=== PATIENT | female | born 1980 | race Caucasian/White ===

== ENCOUNTER 2022-06-08 07:05 | Outpatient (CLI) | payer BC, SELFPAY ==
--- NOTE | 2022-06-08 07:15 | CRLHL7_ITS ---
For Patients: As a result of the Century Cures Act, medical imaging exams and procedure reports are released immediately into your electronic medical record. You may view this report before your referring provider. If you have questions, please contact your health care provider. INDICATION: Dating and viability COMPARISON: none TECHNIQUE: Real time cole scale imaging of the fetus was performed. FINDINGS: Sonographic imaging demonstrates a single living intrauterine gestation. Fetus demonstrates a regular cardiac rate of 157 beats per minute. Fetus has a vertex position. The placenta lies anteriorly. Amniotic fluid volume appears normal. Single deepest vertical pocket: 4.1 cm. The cervix is closed and measures 5.9 cm in length. The composite ultrasound gestational age is calculated at 18 weeks 6 days with an estimated sonographic due date of 11/03/2022. The estimated weight is 290 grams which lies at the 77th %. The following biometric measurements were obtained: Biparietal diameter: 3.9 cm/17 weeks 6 days 13th% Head circumference: 15.6 cm/18 weeks 4 days 27th% Abdominal circumference: 14.5 cm/19 weeks 6 days 78th% Femur length: 3.0 cm/19 weeks 1 day 57th% The HC/AC ratio measures: 1.07 range (1.09-1.26) Too early for anatomic survey. There is an anterior uterine fibroid measuring 2.1 x 1.2 x 1.8 cm. IMPRESSION: Single living intrauterine with sonographic gestational age 18 weeks 6 days and sonographic due date 11/03/2022. Mid anterior uterine fibroid measuring 2.1 cm. Dictated by Oswaldo Coleman MD @ 06/08/2022 8:39:00 AM (Electronically Signed)
== END 2022-06-08 07:06 | disposition home or self-care (01) ==
PROVIDERS: Visit Provider Advanced Practice Midwife
DX: O09.522 Supervision of elderly multigravida, second trimester (principal); Z3A.18 18 weeks gestation of pregnancy
CPT/HCPCS: 76815; 86592; 86703; 86762; 86787; 86803; 86850; 86900; 86901; 87086; 87340; 87491; 87591

== ENCOUNTER 2022-06-20 14:49 | Outpatient (CLI) | payer BC, SELFPAY | END 2022-06-20 14:50 | disposition home or self-care (01) | LOC: US 14:50 | PROVIDERS: Visit Provider Pediatrics Neonatal-Perinatal Medicine | DX: O09.522 Supervision of elderly multigravida, second trimester (principal); Z3A.20 20 weeks gestation of pregnancy | CPT/HCPCS: 76811 ==

== ENCOUNTER 2022-08-09 14:43 | Outpatient (CLI) | payer BC, SELFPAY ==
[2022-08-12 03:14] LABS: Rapid Plasma Reagin (RPR) Non Reactive (Non Reactive)
== END 2022-08-09 14:44 | disposition home or self-care (01) ==
PROVIDERS: Visit Provider Obstetrics & Gynecology
DX: Z34.82 Encounter for supervision of other normal pregnancy, second trimester (principal)
CPT/HCPCS: 86592

== ENCOUNTER 2022-08-13 13:30 | Outpatient (CLI) | payer BC, SELFPAY ==
[2022-08-13 08:52] LABS: Glucose Fasting Check 94 mg/dl (60-115)
[2022-08-13 13:26] LABS: Glucose GTT-Gestational 3 Hr 112 mg/dl (70-140)
[2022-08-13 13:26] LABS: Glucose 1 Hour Gest 158 mg/dl (70-180)
== END 2022-08-13 13:31 | disposition home or self-care (01) ==
PROVIDERS: Visit Provider Obstetrics & Gynecology
DX: Z34.90 Encounter for supervision of normal pregnancy, unspecified, unspecified trimester (principal)
CPT/HCPCS: 82951; 82952

== ENCOUNTER 2022-09-06 13:51 | Outpatient (CLI) | payer BC, SELFPAY ==
--- NOTE | 2022-09-06 14:00 | CRLHL7_ITS ---
For Patients: As a result of the Century Cures Act, medical imaging exams and procedure reports are released immediately into your electronic medical record. You may view this report before your referring provider. If you have questions, please contact your health care provider. INDICATION: GROWTH AND FLUID COMPARISON: 06/20/2022 TECHNIQUE: Real time cole scale imaging of the fetus was performed. FINDINGS: Sonographic imaging demonstrates a single living intrauterine gestation. Fetus demonstrates a regular cardiac rate of 134 beats per minute. Fetus has a niki breech position. The placenta lies anteriorly. Amniotic fluid volume appears normal and there is a single deepest vertical pocket: 7.6 cm. The estimated weight is 2201gm which lies at the 90th %. On the prior OB ultrasound exam dated 06/20/2022 the estimated weight was at the 96th%. BPD 76th percentile. HC 54th present. AC 90th percentile. FL 87th percentile. The HC/AC ratio measures 1.02 range (0.96-1.11). IMPRESSION: Sonographic gestational age 33 weeks 2 days and sonographic due date 10/23/2022. Sonographic age is 11 days ahead of the clinical age. Estimated weight 90th percentile. Abdominal circumference 90th percentile. Dictated by Oswaldo Coleman MD @ 09/06/2022 2:53:14 PM (Electronically Signed)
== END 2022-09-06 13:52 | disposition home or self-care (01) ==
PROVIDERS: Visit Provider Obstetrics & Gynecology
DX: O09.523 Supervision of elderly multigravida, third trimester (principal); Z3A.33 33 weeks gestation of pregnancy
CPT/HCPCS: 76816

== ENCOUNTER 2022-10-01 12:51 | Outpatient (CLI) | payer BC, SELFPAY ==
--- NOTE | 2022-10-01 13:00 | CRLHL7_ITS ---
For Patients: As a result of the Century Cures Act, medical imaging exams and procedure reports are released immediately into your electronic medical record. You may view this report before your referring provider. If you have questions, please contact your health care provider. INDICATION: Third trimester scan, evaluate growth. Check fluid. COMPARISON: 09/06/2022 TECHNIQUE: Real time cole scale imaging of the fetus was performed. FINDINGS: Sonographic imaging demonstrates a single living intrauterine gestation. Fetus demonstrates a regular cardiac rate of 135 beats per minute. Fetus has a vertex position. The placenta lies anteriorly. Amniotic fluid volume appears normal and there is a single deepest vertical pocket: 6.7 cm. The estimated weight is 3081gm which lies at the 90th %. On the prior OB ultrasound exam dated 09/06/2022 the estimated weight was at the 90th%. BPD 52nd percentile. HC 27th percentile. AC greater than 97th percentile. FL 59th percentile. The HC/AC ratio measures 0.93 range (0.92-1.07). IMPRESSION: Sonographic gestational age 36 weeks 2 days and sonographic due date of 10/27/2022. Sonographic age is 1 week ahead of the clinical age. Estimated weight 90th percentile. Abdominal circumference greater than 97th percentile. Dictated by Oswaldo Coleman MD @ 10/01/2022 1:32:33 PM (Electronically Signed)
== END 2022-10-01 12:52 | disposition home or self-care (01) ==
LOC: US 12:52
PROVIDERS: Visit Provider Obstetrics & Gynecology
DX: O09.523 Supervision of elderly multigravida, third trimester (principal); Z3A.36 36 weeks gestation of pregnancy
CPT/HCPCS: 76816

== ENCOUNTER 2022-10-11 14:16 | Outpatient (CLI) | payer BC, SELFPAY ==
[2022-10-12 12:52] LABS: Strep B DNA Probe NEGATIVE (Negative)
[2022-10-12 13:25] LABS: Strep B Pen/Amox Allergy No
== END 2022-10-11 14:17 | disposition home or self-care (01) ==
LOC: NFLDREF 14:16
PROVIDERS: Visit Provider Obstetrics & Gynecology
DX: O09.513 Supervision of elderly primigravida, third trimester (principal); Z3A.36 36 weeks gestation of pregnancy
CPT/HCPCS: 87081; 87653

== ENCOUNTER 2022-10-20 04:57 | Inpatient (IN) | payer BC, SELFPAY ==
[2022-10-20] VITALS (32 sets, daily range): BP systolic 108–129; BP diastolic 50–87; PULSE 89–126; RESP 16; TEMP 36.1–36.7; O2SAT 94–100
[2022-10-20 06:19] LABS: Hemoglobin* 11.2 gm/dL (12.0-16.0)
[2022-10-20 06:24] LABS: SARS PCR* Negative SARS-CoV-2 (Negative)
[2022-10-20 06:53] LABS: Basophils Percent Auto 0.4 % (0.0-3.0); Eosinophils Percent Auto 1.2 % (0.0-7.0); Hematocrit 34.7 % (33.0-51.0); Hemoglobin* 11.2 gm/dL (12.0-16.0); Immature Granulocytes Pct Auto 0.6 %; Lymphocytes Percent Auto 18.4 % (20-44); Mean Corpuscular HGB Conc 32 gm/dL (32-36); Mean Corpuscular Hemoglobin 26 pg (26-34); Mean Corpuscular Volume 82 fL (80-100); Monocytes Percent Auto 8.1 % (0.0-11.0); Neutrophils Percent Auto 71.3 % (42.0-72.0); Platelet Count* 304 K/uL (140-440); RDW Coefficient of Variation % 14.1 % (11.5-15.5); Red Blood Count 4.24 m/uL (4.00-5.20); White Blood Count* 14.15 K/uL (4.50-11.00)
[2022-10-20 06:59] LABS: Slide Review Reflex No
--- NOTE | 2022-10-20 07:30 | P.PCN_ITS ---
Procedure Note Time Seen by Provider: 07:30 Date Seen: 10/20/22 Date of procedure: 10/20/22 Will [facility] bill your pro fee for this procedure?: Yes Procedure: Preoperative diagnosis: 42-year-old 4 para 3003 at 38 and 0/7 weeks ad mitted for a 1. Scheduled repeat low transverse section. 2. Undesired fertility 3. Gestational hypertension Postoperative diagnosis: Same Procedure: Repeat low-transverse section. Bilateral Salpingectomy Anesthesia: Spinal, TAPS block (placed at the end of the procedure) Surgeon: Kristen Romero MD Project Landscape Architect: Not applicable Quantitative blood loss: 417 mL IVF: 1500 mL UOP: 400 mL clear urine the end of the procedure Drain(s): Watson to gravity Specimen: Placenta, Right and left fallopian tubes to pathology Findings: A live female was delivered from the direct OA position at 8:12 am. Apgars were 8 at 1 min and 8 at 5 min, respectively. Infant weight: 3680 g, 8 lb 2 oz: AGA. Nuchal cord(s): No. The placenta was delivered spontaneously and complete at 8:15 am. Amniotic fluid: Large amount of clear fluid. Normal uterus, fallopian tubes and ovaries were noted. Other findings: Adhesions of the bladder to the left lower anterior uterine segment that were taken down sharply. Procedure: Haylie was taken to the OR where spine anesthetic was found be adequate. A Watson catheter was placed. The patient was then placed in the dorsal supine position with a leftward tilt. She was then prepped and draped in a normal sterile manner. A Pfannenstiel skin incision was made and carried through sharply to the underlying layer of fascia. Fascia was incised in the midline and this incision carried laterally with Arzate scissors. The superior aspect of fascial incision was grasped with Milana clamps, tented up, and the rectus musc les dissected off with combination of bipolar cautery and sharp dissection to 3- 5cm superior to the fascial incision. The inferior aspect of the fascial incision was not dissected off the rectus muscles. The rectus muscles were in the midline. The peritoneum was grasped with 2 Claudia clamps and entered sharply with Arzate scissors.. This opening was extended in layers inferiorly with excellent visualization of the bladder. An Juanito-O self- retaining retractor was placed. There were adhesions of the bladder reflection to the left lower intrauterine segment that were taken down sharply with Metzenbaum scissors. A bladder flap was not created. Uterus was incised in a low transverse manner in the midline. This incision carried laterally with blunt pressure on the inferior and superior aspects of the uterine incision. The amniotic sac was ruptured. The infant's head and body was delivered atraumatically. The was shown to the patient and her support person, then handed to waiting nursing staff. The placenta was delivered spontaneously. The uterus was cleared of clots and debris. The uterine incision was re-approximated with the uterus in vivo. The 1st layer using 0-Vicryl in a running, locked manner. The 2nd layer using 0-Monocryl in a running, vertical, imbricating layer. Additional sutures needed for hemostasis: No. Attention was then turned to performing the bilateral salpingectomy. The uterus was exteriorized to visualize fallopian tubes and ovaries.The right fallopian tube was identified, grasped with 2 Veronica clamps and followed to the fimbriate d end of the fallopian tube. The hand-held LigaSure dissecting forceps was used to remove the fallopian tube from the cornua and broad ligament by sequential pedicles. The pedicles were started at the fimbriated end of the tube and extended toward the cornua. The fallopian tube was amputated from the cornual a and sent to pathology. Hemostasis of the pedicles was obtained using bipolar cautery and a DeBakey forceps. The left fallopian tube was then identified, grasped with 2 Veronica clamps and removed in the same manner as the right fallopian tube. All pedicles were visualized and hemostasis obtained using bipolar cautery with a DeBakey clamp. The uterine incision was reinspected and noted to be hemostatic. Hitesh was applied to the uterine incision and excellent hemostasis was confirmed. The Juanito retractor was removed. The rectus muscles were not reapproximated. The peritoneum was repaired using 3-0 Vicryl in a running manner. The rectus muscles were then closely inspected to verify hemostasis. Hemostasis was obtained with bipolar cautery. The fascia was then reapproximated using 0-Maxon loop in a running manner. The subcutaneous tissue was then irrigated with saline and hemostasis obtained with bipolar cautery. The subcutaneous tissue was reapproximated using 3-0 plain gut interrupted sutures in 2 layers. The skin was reapproximated using 4-0 Monocryl in a running subcuticular manner. Exofin skin adhesive and a Methaplex dressing were applied. The patient tolerated this procedure well. Sponge, lap and instrument counts were correct x2 active to the procedure. Patient was taken to the recovery area in stable condition. The patient received 2g of IV Ancef prior to skin incision. Anesthesia: spinal Surgeon: Kristen Romero MD Pathology: specimen obtained, sent to pathology Condition: stable Disposition: floor
[2022-10-20] MEDS: LACTATED RINGERS 1000 ML 1,000 ML 100 ML IV ×2 (07:34→08:13)
[2022-10-20] MEDS: CEFAZOLIN 2 GM INJ IVP (07:44)
[2022-10-20] MEDS: KETOROLAC 30 MG/ML inj IVP ×3 (08:48→21:04)
--- NOTE | 2022-10-20 09:38 | P.NB_ITS ---
Nerve Block Nerve Block Time Seen by Provider: 09:20 Date Seen: 10/20/22 Type of block requested by surgeon for post-operative analgesia: TAP Side: bilateral Time out performed: Yes Verification of patient name: Yes Verification of date of : Yes Site marking: site marked Name of person performing procedure: emir Continuous monitoring Was continuous monitoring of O2 sat, B/P, cardiac specialist, recorded every 15 minutes?: Yes Procedure Checklist: sterile prep, needles and gloves Ultrasound guided. Images saved: Yes Medications given in 5ml increments after negative aspiration: Marcaine %: 0.25 mL: 30 Needle gauge: 20 and Exparel mL: 10 Patient tolerated procedure well: Yes Block Charges Block Charge (with Pro Fee): TAP Bilateral Use of Ultrasound Machine for Block: Yes- US Guidance/pain block
--- NOTE | 2022-10-20 09:40 | W.ANESCHARGE ---
Anesthesia Charges Start Date/Time Anesthesia Start Date: 10/20/22 Stop Date/Time Anesthesia Stop Date: 10/20/22 Anesthesia Stop Time: 09:31
[2022-10-20] MEDS: METOCLOPRAMIDE HCL 5 MG/ML INJ IVP (09:52)
[2022-10-21] VITALS (11 sets, daily range): BP systolic 116–134; BP diastolic 75–84; PULSE 86–95; RESP 16; TEMP 36.6–36.8; O2SAT 95–97
[2022-10-21] MEDS: KETOROLAC 30 MG/ML inj IVP ×3 (03:22→15:58)
[2022-10-21 04:34] LABS: Hemoglobin* 10.4 gm/dL (12.0-16.0)
--- NOTE | 2022-10-21 05:36 | P.OBPN_ITS ---
OB - PN: Subj Subjective Time Seen by Provider: 06:28 Date Seen: 10/21/22 Narrative: SUBJECTIVE The patient feels well. The pain is well controlled with current medications. She has no new complaints. Watson is in place/has been removed. There is adequate urine output. The patient is voiding without difficulty. She has good appetite, is tolerating a grade, is passing flatus, and has in a had a bowel movement. There is scanned amount of rubra lochia. She is ambulating well. Bottle for without difficulty. Postop hgb is pending. OBJECTIVE: Vital Signs: See EMR MOOD: appropriate CHEST: clear to auscultation HEART: regular rate and rhythm ABDOMEN: soft, non-tender the uterine fundus is firm at the Umbilicus, Midline and is appropriate for the stage of recovery. INCISION: clean, dry and intact with sutures and skin adhesive gel. EXTREMITIES: normal and no edema ASSESSMENT [age] year old who is: 1. Postoperative day # 1 from a scheduled repeat low-transverse with bilateral salpingectomy 2. Postoperative hemoglobin is pending 3. Bottle feeding PLAN 1. Continue routine postoperative cares. 2. Encouraged ambulation and oral hydration. 3. Planning on discharge home tomorrow OB - PN: Obj Exam Physical Exam: Vital signs: Temp Pulse Resp BP Pulse Ox O2 Del Method 98.0 F 95 16 125/80 97 10/21/22 03:17 10/21/22 03:17 10/21/22 04:52 10/21/22 03:17 10/21/22 00:13 10/21/22 00:13 OB - PN: Obj Data Labs Labs: Laboratory Results - last 24 hr 10/20/22 10/20/22 10/20/22 06:02 06:12 06:12 WBC 14.15 H RBC 4.24 Hgb 11.2 L 11.2 L Hct 34.7 MCV 82 MCH 26 MCHC 32 RDW Coeff of Sugey 14.1 Plt Count 304 Neut % (Auto) 71.3 Lymph % (Auto) 18.4 L [place] % (Auto) 8.1 Eos % (Auto) 1.2 Baso % (Auto) 0.4 Neut # (Auto) 10.10 H Lymph # (Auto) 2.60 Independence # (Auto) 1.10 H Eos # (Auto) 0.20 Baso # (Auto) 0.10 SARS-CoV-2 (PCR) Blood Type A Positive Antibody Screen NEGATIVE 10/20/22 10/21/22 Unknown 04:26 WBC RBC Hgb 10.4 L Hct MCV MCH MCHC RDW Coeff of Sugey Plt Count Neut % (Auto) Lymph % (Auto) Independence % (Auto) Eos % (Auto) Baso % (Auto) Neut # (Auto) Lymph # (Auto) Independence # (Auto) Eos # (Auto) Baso # (Auto) SARS-CoV-2 (PCR) Negative SARS-CoV-2 Blood Type Antibody Screen
[2022-10-21] MEDS: DOCUSATE SODIUM 100 MG CAPSULE PO (09:13)
[2022-10-21] MEDS: ACETAMINOPHEN 500 MG TABLET 1000 MG PO (19:42)
[2022-10-22 04:43] VITALS: BP 136/84; PULSE 89; RESP 16; TEMP 36.6; O2SAT 96
[2022-10-22 08:00] VITALS: BP 135/91; PULSE 87; RESP 16; TEMP 36.9; O2SAT 97
--- NOTE | 2022-10-22 08:08 | P.DS_ITS ---
DS: Providers Provider Date Seen: 10/22/22 Date of admission: 10/20/22 04:57 Primary care physician: Kristen Romero MD Admitting Clinician: Kristen Romero MD Attending Physician on discharge: Kristen Romero MD Date of Discharge: 10/22/22 DS: Diagnosis Discharge Diagnosis (1) care following delivery: Status: Acute (2) History of bilateral salpingectomy: Status: Acute Exam Narrative: Exam Narrative: GENERAL APPEARANCE:? normal affect, alert, no distress? MOOD:? appropriate? CHEST:? clear to auscultation and percussion? HEART:? regular rate and rhythm? ABDOMEN:? soft, non-tender the uterine fundus is 1 cm Below Umbilicus, Midline and is appropriate for the stage of recovery. Incision well approximated without edema, redness, warmth, or drainage. Glue closure intact.? PERINEUM:? intact EXTREMITIES:? normal and no edema? Patient has no complaints? No active bleeding?? Doing well? She is requesting discharge home.? Const: Vital Signs, click to edit/add: Vital Signs - 24 hr 10/21/22 08:30 10/21/22 16:01 10/21/22 19:37 Temperature 98.2 F 97.9 F 97.9 F Pulse Rate [Pulse Oximeter] 90 90 86 Respiratory Rate 16 16 16 Blood Pressure [Le ft Arm] 122/75 134/84 130/80 Pulse Oximetry 97 96 96 Oxygen Delivery Me thod Room Air Room Air Room Air 10/22/22 04:43 Temperature 97.8 F Pulse Rate [Pulse Oximeter] 89 Respiratory Rate 16 Blood Pressure [Le ft Arm] 136/84 Pulse Oximetry 96 Oxygen Delivery Me thod Documenting provider has reviewed patient's vital signs: yes OB - DS: Summary Hospital Course Hospital Course: Patient is a 42year old, G 4 now P 4? admitted on 10/20/22 at 38 Weeks, 0 Days gestation for repeart .? She had an uncomplicated delivery.? She delivered a viable female infant.? She is bottle feeding and reports things are well. Discussed comfort measures for engorgement.? the patient has done well.? Her pain is well controlled with current medications.? She has no new complaints.? Vitals have been stable. She has remained afebrile. She is voiding without difficulty. She is passing gas and has not had a bowel movement. She is ambulating and denies any dizziness. She has a bilateral salpingectomy for control.? Peripartum Data Procedures: Procedures Operation Date: 10/20/22 07:15 Actual Procedure Side Surgeon p Section Kristen Romero MD s Bilateral Salpingectomy Kristen Romero MD Operation Date: 10/26/22 07:15 <No data on this case meets the specified criteria> complications: none Infant Gender: Female Discharge Plan: Home Status at Discharge Functional status at discharge: independent ambulation Overall status at discharge: patient is progressing back to baseline Time Spent with Patient Time attestation: Total time spent providing and/or coordinating discharge services: Discharge Plan Discharge Disposition: Home, Self-Care Date of Admission: 10/20/22 04:57 Attending Provider on Discharge: Calista Victor Primary Care Provider: Kristen Romero Condition: Stable Anticipated Discharge Date/Time: 10/22/22 12:00 Discharge Medications: New docusate sodium 100 mg Capsule 100 mg PO BID PRN (Reason: constipation) Qty: 100 0RF ibuprofen 600 mg Tablet 600 mg PO Q6H PRN (Reason: Pain) Qty: 30 0RF oxycodone 5 mg Tablet 5 mg PO Q4H PRN (Reason: Pain) Qty: 21 0RF Continued famotidine [Acid Paper Ruler (famotidine)] 20 mg tablet 20 mg PO QDAY PRN (Reason: acid reflux) Discontinued Gummies 400 mcg-35 mg- 25 mg-5 mg tablet,chewable 1 tab PO Discharge Orders: Discharge Order (Routine); Ordered 10/22/22 Ordered By: Calista Victor Patient Education: (DC), Salpingectomy (DC) Additional Instructions: ACTIVITY RESTRICTIONS: After a section: 1. No driving while taking narcotic pain medication during the day. 1-2 weeks. Okay to be the passenger anytime. 2. Lifting restriction: Maximum of 20 pounds for 6 weeks. 3. No high impact or core exercises for 6 weeks. 4. Nothing vaginally for 6 weeks: no tampons/intercourse 5. OK to soak the incision (bath/pool) 2 weeks after delivery 6. Off of work for a minimum of 8 weeks postoperatively. No restriction for the followin. Walking and going up or down stairs. 2. Showering Symptoms to report to doctor: -Bleeding that saturates more than one pad per hour ?-Passing clots larger than the size of a golf ball ?-Pain not relieved by prescribed medication ?-Fever above 100.4 degrees Fahrenheit ?-A foul vaginal odor ?-Difficulty in emotions, mood and functions ?-Thoughts of hurting yourself and/or ?-Painful, reddened area in your breast ?-Any drainage, redness or tenderness in your IV/epidural site ?-Severe headache that doesn't improve after taking medications ?-Changes in vision, including temporary loss of vision, blurred vision, and/or light sensitivity ?-Upper abdominal pain (usually under ribs on the right side) ?-Decrease in urination or painful, frequent urinating ?-Chest pain ?-Shortness of breath ?-Tenderness or pain with redness and/swelling in the calf(s) of your leg FOLLOW-UP APPOINTMENTS: 1. 2 week visit with Kristen Romero MD: discuss infant care/feeding concerns, screen for anxiety/depression and incision check. 2. A 6 week visit for an annual physical exam. consultation services are available to all mothers and babies for the first year after delivery.? To make an appointment, please call [phone]. Activity Level: Other Discharge Diet: Regular Follow Up Appointments: [facility] [Provider Group] Kristen Romero MD [Primary Care Provider] - Forms: [employer] Info Instructions
[2022-10-22 11:35] VITALS: BP 135/91; PULSE 87; RESP 18; TEMP 36.9
== END 2022-10-22 11:50 | disposition home or self-care (01) | DRG 540 ==
PROVIDERS: Admitting Provider Obstetrics & Gynecology; PCP Obstetrics & Gynecology; Visit Provider Obstetrics & Gynecology
PROC: 10D00Z1 Extraction of Products of Conception, Low, Open Approach (ICD-10-PCS; CPT 59514; principal; 2022-10-20 07:00)
PROC: 10D00Z1 Extraction of Products of Conception, Low, Open Approach (ICD-10-PCS; CPT 58661; 2022-10-20 07:00)
DX: O34.211 Maternal care for low transverse scar from previous cesarean delivery (principal); O13.4 Gestational [pregnancy-induced] hypertension without significant proteinuria, complicating childbirth; O99.334 Smoking (tobacco) complicating childbirth; F17.210 Nicotine dependence, cigarettes, uncomplicated; Z3A.38 38 weeks gestation of pregnancy; Z30.2 Encounter for sterilization; Z37.0 Single live birth
CPT/HCPCS: 1961; 36415; 76942; 82565; 82570; 84156; 84450; 84460; 84520; 84550; 85018; 85025; 86850; 86900; 86901; 87635; 88302; 88307; A9270; C9290; J0690; J1100; J1885; J2274; J2370; J2405; J2590; J2765; J3010; J3490; J7120

== ENCOUNTER 2023-01-08 04:12 | Emergency (ER) | payer BC, SELFPAY ==
[2023-01-08 04:18] VITALS: BP 155/84; PULSE 84; RESP 18; TEMP 36.7; O2SAT 99; BMI 30.9
--- NOTE | 2023-01-08 04:42 | ED.GENADULT ---
HPI - General Adult General Chief complaint: Vaginal Bleeding Stated complaint: bleeding heavily Time Seen by Provider: 01/08/23 04:18 Source: patient Mode of arrival: ambulatory Limitations: no limitations History of Present Illness HPI narrative: 42-year-old female slightly less than 3 months from repeat of her last baby. Reports that she got her 1st menstrual. Following delivery 3 days ago, initially light. Has become increasingly heavy. Started passing small clots up to the size of a nickel but mostly stringy and pea-sized clots. She reports that she is changing her pad every hour but admittedly is not fully soaking through. She felt a little lightheaded after she went to the bathroom did not lose consciousness. Now feels a little weak but otherwise well. No fevers. notes reviewed, uncomplicated. No history of fibroids, polyps or other uterine abnormalities per patient. No fever, no unusual discharge. She is a smoker. She is not on any type of contraception, hormone replacement therapy etc.. Has not tried any other interventions to help with her symptoms prior to coming to the ED. Reports that she was assessed by a triage line and they advised her to come to the ED. she has been taking ibuprofen for cramping and had a tubal ligation with the . Does not use anticoagulants. Past medical history notable for 2 C sections. Not on any type of hormone therapy. Smoker. No allergies. ROS is notable for the heavy bleeding and generalized symptoms as above, otherwise denies times 12 systems. Related Data Home Medications Medication Instructions Recorded Confirmed No Known Home Medications 01/08/23 01/08/23 Allergies Allergy/AdvReac Type Severity Reaction Status Date / Time No Known Allergies Allergy Verified 01/08/23 04:22 [facility] Medical History Gestational hypertension (~10/19/22) ?O13.9 - Gestational [-induced] hypertension without significant proteinuria, unspecified trimester (ICD-10) Surgical History History of bilateral salpingectomy (10/20/22) ?Z90.79 - Acquired absence of other genital organ(s) (ICD-10) Status post repeat low transverse section (10/20/22) ?Z98.891 - History of uterine scar from previous surgery (ICD-10) [place] teeth extracted ?K08.409 - Partial loss of teeth, unspecified cause, unspecified class (ICD-10) History of delivery ?Z98.891 - History of uterine scar from previous surgery (ICD-10) Family History Mother Diabetes Social History Narrative: Cis-gender, heterosexual woman. Relationship status: . Spouse/Partner: Crow Education: High school graduate Occupation: Works for [employer] Tobacco: Her Smoker: Approximately 1/2 pack per day E-cigarettes: No Alcohol: Rare, less than 1 serving/week. No alcohol intake well . Illicit/recreational drugs: No Safety concerns at home or work: No Dietary restriction(s): No Exercise: Her job is physical. She does not exercise outside of her employment. Lives with her spouse, Crow and their 4 children: Jackie, Carlos Manuel, Vj and Birgit Smoking Status: Current every day smoker Second hand tobacco smoke exposure: No How often do you have a drink containing alcohol: never How often do you have six or more drinks on one occasion: Never AUDIT-C Alcohol total score: 0 Non-prescribed substance use: denies use Little interest or pleasure in doing things: not at all Feeling down, depressed, or hopeless: not at all Exam Const: Vital Signs, click to edit/add: Vital Signs - 24 hr 01/08/23 04:18 Temperature 98.0 F Pulse Rate [Right Pulse Oximeter] 84 Respiratory Rate 18 Blood Pressure [Ri ght Upper Arm] 155/84 H Pulse Oximetry 99 Oxygen Delivery Me thod Room Air Documenting provider has reviewed patient's vital signs: yes Common normals: no apparent distress General appearance: cooperative, comfortable and well kempt HENMT: Common normals: normocephalic and head/scalp atraumatic Head and scalp: normocephalic and atraumatic Face and sinus: normal facial exam Mouth: oral and palatal mucosa normal Throat: posterior oropharynx normal Eye: Common normals: conjunctivae normal General eye: normal appearance of both eyes Conjunctiva: conjunctiva(e) normal Resp: Common normals: normal respiratory effort, no retractions, no use of accessory muscles and clear to auscultation bilaterally Effort & inspection: able to speak in complete sentences Auscultation: clear to auscultation bilaterally Cardio: Common normals: regular rate, regular rhythm, S1 normal heart sound, S2 normal heart sound and no murmurs Rate: regular rate Rhythm: regular rhythm Heart sounds: S1 normal and S2 normal GI: Common normals: Normal to inspection, nondistended, normoactive bowel sounds present, soft to palpation, non-tender and no hepatosplenomegaly Palpation: soft and no hepatosplenomegaly Other: Repeat scar healing well, no abnormality, drainage, redness etc. : Other: Large skin tag on left inner thigh near labial junction, normal in appearance. External genitalia normal. Vaginal mucosa normal in appearance. Cervix multiparous, closed. Small stringy long clots noted, no active heavy bleeding. No gush is on Valsalva. Bleeding is dark red. Speculum is removed, bimanual exam showing normal uterine size and contour. A little bit of swelling as expected above the incision track does make it difficult to palpate the edges there but fundal contour normal. Extremity: Common normals: normal to inspection and no pedal edema Neuro: Speech: speech normal Gait (neuro): normal gait Motor exam: no tremor noted and no movement abnormalities noted Psych: Appearance: well kempt Attitude: calm and engaged Insight: insight good Judgement: judgment good Course Vital Signs Vital signs: Initial Vital Signs Temperature 98.0 F 01/08/23 04:18 Temperature Source Temporal Artery Scan 01/08/23 04:18 Pulse Rate 84 01/08/23 04:18 Respiratory Rate 18 01/08/23 04:18 Blood Pressure 155/84 H 01/08/23 04:18 Blood Pressure Mean 107 H 01/08/23 04:18 Blood Pressure Position Sitting 01/08/23 04:18 Pulse Oximetry 99 01/08/23 04:18 Oxygen Delivery Method Room Air 01/08/23 04:18 Vital Signs Temperature 98.0 F 01/08/23 04:18 Pulse Rate 84 01/08/23 04:18 Respiratory Rate 18 01/08/23 04:18 Blood Pressure 155/84 H 01/08/23 04:18 Pulse Oximetry 99 01/08/23 04:18 Oxygen Delivery Method Room Air 01/08/23 04:18 Temperature 98.0 F 01/08/23 04:18 Pulse Rate 84 01/08/23 04:18 Respiratory Rate 18 01/08/23 04:18 Blood Pressure 155/84 H 01/08/23 04:18 Pulse Oximetry 99 01/08/23 04:18 Oxygen Delivery Method Room Air 01/08/23 04:18 Medical Decision Making MDM Narrative Medical decision making narrative: Moderate bleeding, no signs of severe hemorrhage. Did briefly discuss case with Dr. Lezama. I let her know I was not planning to repeat a CBC. Since the patient is not hypotensive, tachycardic or exhibiting symptoms consistent with orthostatic hypotension at this time, she does not need IV fluids. She is a poor candidate for estrogen therapy due to age in smoking status. She is not need hormones for contraception. Discussed alarm symptoms, returning to ED if worsening, larger clots, orthostatic symptoms etc.. Advised patient to call into the OB office tomorrow morning and update them with progress. They will managed from this point forward. Okay to continue Tylenol and ibuprofen for cramping. All questions answered. Discharge Plan Discharge Clinical Impression: Heavy menstrual bleeding Patient Disposition: Home, Self-Care Condition: Stable Instructions: Menorrhagia (ED) Additional Instructions: Your period is heavy but does not appear medically dangerous. This is good news. Hopefully things start to improve in 24-48 hours. For many women, the 1st. After a is quite heavy. I spoke with Dr. Lezama, from Ob. She agrees with our plan to wait and see at this time. Continue keeping track of your discharge and flow with pads. Report back to them on how saturated the pads are and how often you are having to change them. Call the mid morning with this information. It is okay to continue Tylenol and ibuprofen for cramping. If this continues, there are progesterone only control pill options which can light in your. Or intrauterine hormone like IUDs that may help as well. There are many other options that the OB team can discuss with you as well. Activity Level: No Restrictions Discharge Diet: Regular Prescriptions: No Action No Known Home Medications Follow Up/Referrals: Kristen Romero MD [Primary Care Provider] - Stand Alone Forms: [facility] Info Instructions
[2023-01-08 05:09] VITALS: BP 135/74; PULSE 74; RESP 18; TEMP 36.9; O2SAT 99
[2023-01-08 05:10] VITALS: BP 135/74; PULSE 74; RESP 18; TEMP 36.9
== END 2023-01-08 05:11 | disposition home or self-care (01) ==
PROVIDERS: Emergency Provider Family Medicine; PCP Obstetrics & Gynecology
DX: N92.0 Excessive and frequent menstruation with regular cycle (principal)
CPT/HCPCS: 99282; 99283; 99284

== ENCOUNTER 2023-08-10 11:17 | Emergency (ER) | payer BC, SELFPAY ==
[2023-08-10 11:31] VITALS: BP 133/93; PULSE 70; RESP 17; TEMP 36.8; O2SAT 99; BMI 33.5
--- NOTE | 2023-08-10 11:42 | CRLHL7_ITS ---
For Patients: As a result of the Century Cures Act, medical imaging exams and procedure reports are released immediately into your electronic medical record. You may view this report before your referring provider. If you have questions, please contact your health care provider. INDICATION: Pain. TECHNIQUE: CT of the neck soft tissues performed with IV contrast. Contrast: 95 cc Isovue 370. COMPARISON: None available at this institution. FINDINGS: The nasopharynx, oropharynx and hypopharynx appear unremarkable. The supraglottic, glottic and infraglottic spaces are preserved. The parotid and submandibular glands appear unremarkable. The thyroid gland is normal. No lymphadenopathy identified. The visualized major vascular structures appear intact. The visualized intracranial components appear grossly intact. Visualized orbits and contents appear unremarkable. The paranasal sinuses are clear as visualized. Scattered dental disease. Lung apices are clear. Mild spondylosis of the cervical spine. Mild reversal of the cervical lordosis. IMPRESSION: No evident mass, fluid collection or lymphadenopathy within the neck. Please note that all CT scans at this facility use dose modulation, iterative reconstruction, and/or weight-based dosing when appropriate to reduce radiation dose to as low as reasonably achievable. Dictated by Nba Washington MD @ 08/10/2023 12:46:35 PM (Electronically Signed)
--- NOTE | 2023-08-10 11:54 | ED_ITS ---
HPI - General Adult General Date Seen: 08/10/23 Chief complaint: Difficulty Swallowing Stated complaint: mouth pain Time Seen by Provider: 08/10/23 11:37 Source: patient Mode of arrival: ambulatory Limitations: no limitations History of Present Illness HPI narrative: Patient is a 43-year-old female with no pertinent medical problems presenting to emergency department with oropharynx issues. She was sent here by Urgent Care. She states over the past 2 days she has been having a mildly sore throat mostly on the right side of her throat, hoarse voice, cracked in painful lips and discomfort and pain of her tongue with lekoplakia. She was concerned so went to urgent care who was then sent to us for concern of John angina. She says it is painful to open her mouth all the way. Denies fevers, chills, chest pain, shortness of breath, weakness, numbness, lightheadedness, dizziness, no other concerns noted at this time Related Data Previous Rx's Medication Instructions Recorded Magic Mouthwash See Rx Instructions .Route 08/10/23 (Lidocaine/Benadryl/Maalox) 120 mL .COMPLEX #120 mL suspension Allergies Allergy/AdvReac Type Severity Reaction Status Date / Time No Known Allergies Allergy Verified 08/10/23 12:31 Review of Systems Status of ROS: Reports: 10 or more systems reviewed and unremarkable except as noted in History and below [facility] Medical History Gestational hypertension (~10/19/22) ?O13.9 - Gestational [-induced] hypertension without significant proteinuria, unspecified trimester (ICD-10) Surgical History History of bilateral salpingectomy (10/20/22) ?Z90.79 - Acquired absence of other genital organ(s) (ICD-10) Status post repeat low transverse section (10/20/22) ?Z98.891 - History of uterine scar from previous surgery (ICD-10) [place] teeth extracted ?K08.409 - Partial loss of teeth, unspecified cause, unspecified class (ICD- 10) History of delivery ?Z98.891 - History of uterine scar from previous surgery (ICD-10) Family History Mother Diabetes Social History Narrative: Cis-gender, heterosexual woman. Relationship status: . Spouse/Partner: Crow Education: High school graduate Occupation: Works for [employer] Tobacco: Her Smoker: Approximately 1/2 pack per day E-cigarettes: No Alcohol: Rare, less than 1 serving/week. No alcohol intake well . Illicit/recreational drugs: No Safety concerns at home or work: No Dietary restriction(s): No Exercise: Her job is physical. She does not exercise outside of her employment. Lives with her spouse, Crow and their 4 children: Jackie, Carlos Manuel, Vj and Birgit Smoking Status: Current every day smoker Second hand tobacco smoke exposure: No How often do you have a drink containing alcohol: never How often do you have six or more drinks on one occasion: Never AUDIT-C Alcohol total score: 0 Non-prescribed substance use: denies use Little interest or pleasure in doing things: not at all Feeling down, depressed, or hopeless: not at all Exam Narrative: Exam Narrative: Const: Well-nourished, Well-developed, in mild distress Eyes: PERRL, no conjunctival injection, and symmetrical lids HENT: Cracked in bleeding lip seen of the right lower portion, leukoplakia on tongue, uvula midline, no tonsillar exudates or swelling, no swelling noted to the neck or under the tongue, able to fully open mouth Neck: Symmetric, trachea midline, No thyromegaly. CVS: RRR, No murmurs or gallops. Peripheral pulses 2+ and equal in all extremities RESP: Unlabored respiratory effort. Clear to auscultation bilaterally. GI: Nontender/Nondistended, No rebound or guarding. MSK:Extremities w/o deformity, Normal Active ROM Skin: Warm, Dry. No rashes or lesions. Neuro: Normal Muscle tone, No focal neurological deficits. Psych: Awake, Alert, & Oriented x3. Appropriate mood and affect. Const: Vital Signs, click to edit/add: Vital Signs - 24 hr 08/10/23 11:31 Temperature 98.3 F Pulse Rate [Pulse Oximeter] 70 Respiratory Rate 17 Blood Pressure [Ri ght Upper Arm] 133/93 H Pulse Oximetry 99 Oxygen Delivery Me thod Room Air Course Vital Signs Vital signs: Initial Vital Signs Temperature 98.3 F 08/10/23 11:31 Temperature Source Temporal Artery Scan 08/10/23 11:31 Pulse Rate 70 08/10/23 11:31 Respiratory Rate 17 08/10/23 11:31 Blood Pressure 133/93 H 08/10/23 11:31 Blood Pressure Mean 106 H 08/10/23 11:31 Pulse Oximetry 99 08/10/23 11:31 Oxygen Delivery Method Room Air 08/10/23 11:31 Vital Signs Temperature 98.3 F 08/10/23 11:31 Pulse Rate 70 08/10/23 11:31 Respiratory Rate 17 08/10/23 11:31 Blood Pressure 133/93 H 08/10/23 11:31 Pulse Oximetry 99 08/10/23 11:31 Oxygen Delivery Method Room Air 08/10/23 11:31 Temperature 98.3 F 08/10/23 11:31 Pulse Rate 70 08/10/23 11:31 Respiratory Rate 17 08/10/23 11:31 Blood Pressure 133/93 H 08/10/23 11:31 Pulse Oximetry 99 08/10/23 11:31 Oxygen Delivery Method Room Air 08/10/23 11:31 Medical Decision Making MDM Narrative Medical decision making narrative: Patient is a 43-year-old female presenting to the emergency department for concern of John internal by the urgent care provider and a sores on her mouth. On exam there is no clear signs of airway compromise in does not appear to be John angina, peritonsillar abscess, retropharyngeal abscess but we will do a CT scan with IV contrast to rule these out. She has leukoplakia on her tongue and she is a smoker. That along with a viral infection might be what is causing that. Do not see any clear ulcers in her mouth. Will order a strep test, COVID/flu, CBC, BMP. Lab workup returned showing no concerning abnormalities. Strep, COVID, flu test all negative. CT scan shows no signs of abscesses. She is otherwise doing well. Believe all the symptoms are likely a viral issue and she can be discharged home. Will give her Magic mouthwash and told her follow-up ENT if symptoms persist. She is agreeable with this plan. Lab Data Labs: Lab Results 08/10/23 Range/Units 11:52 WBC 9.50 (4.50-11.00) K/uL RBC 5.22 H (4.00-5.20) m/uL Hgb 14.5 (12.0-16.0) gm/dL Hct 44.7 (33.0-51.0) % MCV 86 (80-100) fL MCH 28 (26-34) pg MCHC 32 (32-36) gm/dL RDW Coeff of Sugey 15.1 (11.5-15.5) % Plt Count 253 (140-440) K/uL Neut % (Auto) 64.8 (42.0-72.0) % Lymph % (Auto) 25.1 (20-44) % Branch % (Auto) 8.1 (0.0-11.0) % Eos % (Auto) 1.2 (0.0-7.0) % Baso % (Auto) 0.7 (0.0-3.0) % Neut # (Auto) 6.16 (1.7-7.0) K/uL Lymph # (Auto) 2.38 (0.90-2.90) K/uL Branch # (Auto) 0.80 (0.00-0.90) K/UL Eos # (Auto) 0.11 (0.00-0.50) K/uL Baso # (Auto) 0.07 (0.00-0.30) K/uL Abs Immat Gran (auto) 0.01 (0.00-0.30) K/uL Imm/Tot Granulo (auto) 0.1 % Sodium 140 (135-149) mmol/L Potassium 3.6 (3.6-5.1) mmol/L Chloride 111 (96-114) mmol/L Carbon Dioxide 19 L (20-32) mmol/L Anion Gap 10 (7-15) mEq/L BUN 11 (5-24) mg/dL Creatinine 0.7 (0.5-1.5) mg/dL Estimated Creat Clear 89.48 Estimated GFR 110 ml/min Glucose 87 (60-115) mg/dL Calcium 9.0 (8.4-10.6) mg/dL HCG, Qual Negative (Negative) SARS-CoV-2 (PCR) Negative SARS-CoV-2 (Negative) Influenza Type A (PCR) Negative PCR FLU A (Negative) Influenza Type B (PCR) Negative PCR FLU B (Negative) Group A Strep DNA NOT DETECTED (Not Detectd) Imaging Data CT scan neck soft tissue: Radiologist's impression: No evident mass, fluid collection or lymphadenopathy within the neck. Please note that all CT scans at this facility use dose modulation, iterative reconstruction, and/or weight-based dosing when appropriate to reduce radiation dose to as low as reasonably achievable. Dictated by Nba Washington MD @ 08/10/2023 12:46:35 PM Discharge Plan Discharge Clinical Impression: Leukoplakia of oral mucosa/tongue, Acute viral pharyngitis Patient Disposition: Home, Self-Care Condition: Stable Instructions: Pharyngitis (ED) Additional Instructions: Use the magic mouthwash as directed. If symptoms persist follow-up with Dr. Leslie of ENT. Return to emergency department for new or worsening symptoms. I believe white substance on your tongue is secondary to years smoking and former concurrent viral infection. Prescriptions: New Magic Mouthwash (Lidocaine/Benadryl/Maalox) 120 mL suspension See Rx Instructions .ROUTE .COMPLEX Qty: 120 0RF Rx Instructions: Lidocaine Viscous 2 % mucosal solution 40 mL; Maalox 200 mg-200 mg-20 mg/5 mL oral suspension 40 mL; Benadryl 12.5 mg/5 mL oral elixir 40 mL; Per 120 mL SWISH AND SPIT. MAY COMPOUND IF FIRST PRODUCT IS NOT AVAILABLE. Follow Up/Referrals: Kristen Romero MD [Primary Care Provider] - Stand Alone Forms: [facility] Info Instructions
[2023-08-10 12:03] LABS: Basophils Absolute Auto 0.07 K/uL (0.00-0.30); Basophils Percent Auto 0.7 % (0.0-3.0); Eosinophils Absolute Auto 0.11 K/uL (0.00-0.50); Eosinophils Percent Auto 1.2 % (0.0-7.0); Hematocrit 44.7 % (33.0-51.0); Hemoglobin* 14.5 gm/dL (12.0-16.0); Immature Granulocytes Abs Auto 0.01 K/uL (0.00-0.30); Immature Granulocytes Pct Auto 0.1 %; Lymphocytes Absolute Auto 2.38 K/uL (0.90-2.90); Lymphocytes Percent Auto 25.1 % (20-44); Mean Corpuscular HGB Conc 32 gm/dL (32-36); Mean Corpuscular Hemoglobin 28 pg (26-34); Mean Corpuscular Volume 86 fL (80-100); Monocytes Percent Auto 8.1 % (0.0-11.0); Neutrophils Absolute Auto 6.16 K/uL (1.7-7.0); Neutrophils Percent Auto 64.8 % (42.0-72.0); Platelet Count* 253 K/uL (140-440); RDW Coefficient of Variation % 15.1 % (11.5-15.5); Red Blood Count 5.22 m/uL (4.00-5.20)
[2023-08-10 12:07] LABS: Slide Review Reflex No
[2023-08-10 12:22] LABS: Chloride* 111 mmol/L (96-114); Potassium* 3.6 mmol/L (3.6-5.1); Sodium* 140 mmol/L (135-149)
[2023-08-10 12:24] LABS: Creatinine* 0.7 mg/dL (0.5-1.5); Est. Creatinine Clearance* 89.48; Estimated Glomerular Filt Rate 110 ml/min; HCG Qualitative Serum* Negative (Negative)
[2023-08-10 12:25] LABS: Anion Gap 10 mEq/L (7-15); Blood Urea Nitrogen* 11 mg/dL (5-24); Carbon Dioxide* 19 mmol/L (20-32); Glucose* 87 mg/dL (60-115)
[2023-08-10 12:31] LABS: Strep A DNA Probe* NOT DETECTED (Not Detectd)
[2023-08-10 12:42] LABS: PCR FLU A Negative PCR FLU A (Negative); PCR FLU B Negative PCR FLU B (Negative)
[2023-08-10 12:46] LABS: SARS PCR* Negative SARS-CoV-2 (Negative)
== END 2023-08-10 13:24 | disposition home or self-care (01) ==
PROVIDERS: Emergency Provider Student in an Organized Health Care Education/Training Program; PCP Obstetrics & Gynecology
DX: K13.21 Leukoplakia of oral mucosa, including tongue (principal); J02.9 Acute pharyngitis, unspecified
CPT/HCPCS: 36415; 70491; 80048; 84703; 85025; 87086; 87631; 87651; 95992; 99283; 99284; 99285; Q9967

== ENCOUNTER 2023-08-20 11:00 | Outpatient (CLI) | payer BC, SELFPAY | END 2023-08-20 11:01 | disposition home or self-care (01) | PROVIDERS: PCP Obstetrics & Gynecology; Visit Provider Family Medicine | DX: R21 Rash and other nonspecific skin eruption (principal); Z13.220 Encounter for screening for lipoid disorders | CPT/HCPCS: 80061; 86140; 86592 ==

== ENCOUNTER 2024-05-30 09:07 | Outpatient (CLI) | payer OTHER, SELFPAY | END 2024-05-30 09:08 | disposition home or self-care (01) | LOC: NFLDREF 06-02 16:43 | PROVIDERS: PCP Obstetrics & Gynecology; Referring Provider Obstetrics & Gynecology; Visit Provider Family Medicine | DX: N39.0 Urinary tract infection, site not specified (principal); R39.9 Unspecified symptoms and signs involving the genitourinary system; N30.00 Acute cystitis without hematuria; N34.2 Other urethritis | CPT/HCPCS: 87086 ==